=== PATIENT | female | born 1995 | race African-American/Black ===

== ENCOUNTER 2019-03-24 11:38 | Emergency (ER) | payer BC ==
[~2019-03-24] VITALS: Ht 160 cm; Wt 75.0 kg
[2019-03-24 14:22] LABS: BASOPHILS % 0.5 % (0.0-2.0); HEMATOCRIT. 37.9 % (36.0-48.0); HEMOGLOBIN. 12.9 g/dL (12.0-16.0); LYMPHOCYTES % 29.9 % (20.0-50.0); MEAN CORPUSCULAR HEMOGLOBIN 29.9 pg (28.0-32.0); MEAN CORPUSCULAR VOLUME 87.9 fL (81.0-99.0); MEAN PLATELET VOLUME 8.4 fl (7.4-10.4); MONOCYTES % 9.2 % (2.0-8.0); NEUTROPHILS % 57.4 % (40.0-76.0); PLATELET 278 x1000/uL (130-400); RED BLOOD CELL COUNT 4.31 mill/uL (4.2-5.4); RED CELL DISTRIBUTION WIDTH 13.1 % (11.6-14.6)
[2019-03-24 16:14] VITALS: BP 121/75
== END 2019-03-24 16:23 | disposition home or self-care (01) ==
LOC: ER 11:38
DX: O20.0 Threatened abortion (principal); O26.891 Other specified pregnancy related conditions, first trimester; F12.10 Cannabis abuse, uncomplicated; Z98.890 Other specified postprocedural states; Z3A.13 13 weeks gestation of pregnancy; W10.8XXA Fall (on) (from) other stairs and steps, initial encounter; Y93.01 Activity, walking, marching and hiking; Y92.89 Other specified places as the place of occurrence of the external cause; Y99.8 Other external cause status
CPT/HCPCS: 36415; 76801; 76817; 81025; 84702; 85025; 86850; 86900; 86901; 99284; Z7610

== ENCOUNTER 2019-05-19 01:48 | Emergency (ER) | payer BC ==
[~2019-05-19] VITALS: Ht 160 cm; Wt 78.9 kg
[2019-05-19] MEDS ORDERED: ONDANSETRON 4MG ODT PO ONE (03:15)
[2019-05-19] MEDS ORDERED: ACETAMINOPHEN 500MG TABLET PO ONE (03:15)
[2019-05-19] MEDS ORDERED: AZITHROMYCIN 500 MG TABLET PO ONE (03:15)
[2019-05-19] MEDS ORDERED: CIPROFLOXACIN 0.3% OPHTH SOLN 2.5ML RIGHTEYE ONE (03:15)
[2019-05-19 04:14] VITALS: BP 106/65
== END 2019-05-19 04:19 | disposition home or self-care (01) ==
LOC: ER 02:04
DX: O99.89 Other specified diseases and conditions complicating pregnancy, childbirth and the puerperium (principal); H60.91 Unspecified otitis externa, right ear; F12.10 Cannabis abuse, uncomplicated; Z98.890 Other specified postprocedural states; Z3A.20 20 weeks gestation of pregnancy
CPT/HCPCS: 99284; Q0162

== ENCOUNTER 2019-11-04 05:00 | Inpatient (IN) | payer BC ==
[~2019-11-04] VITALS: Ht 160 cm; Wt 72.6 kg
[2019-11-04] MEDS ORDERED: MORPHINE SULFATE 4 MG/ML CPJ (NOT FOR IM USE) IV STA (06:33)
[2019-11-04] MEDS ORDERED: ONDANSETRON HCL 4MG/2ML INJ IV STA (06:33)
[2019-11-04 06:44] LABS: BASOPHILS % 0.8 % (0.0-2.0); EOSINOPHILS % 6.9 % (0.0-5.0); HEMATOCRIT. 41.1 % (36.0-48.0); HEMOGLOBIN. 13.6 g/dL (12.0-16.0); LYMPHOCYTES % 59.5 % (20.0-50.0); MEAN CORPUSCULAR HEMOGLOBIN 26.2 pg (28.0-32.0); MEAN CORPUSCULAR VOLUME 79.5 fL (81.0-99.0); MEAN PLATELET VOLUME 8.7 fl (7.4-10.4); MONOCYTES % 9.2 % (2.0-8.0); NEUTROPHILS % 23.6 % (40.0-76.0); PLATELET 243 x1000/uL (130-400); RED BLOOD CELL COUNT 5.17 mill/uL (4.2-5.4); RED CELL DISTRIBUTION WIDTH 17.6 % (11.6-14.6)
[2019-11-04 06:47] LABS: CLARITY URINE CLEAR (CLEAR); COLOR URINE YELLOW (YELLOW); KETONES URINE NEGATIVE (NEGATIVE); LEUKOCYTE ESTERASE URINE NEGATIVE (NEGATIVE); NITRITE URINE NEGATIVE (NEGATIVE); OCCULT BLOOD URINE NEGATIVE (NEGATIVE); PROTEIN URINE NEGATIVE (NEGATIVE); SPECIFIC GRAVITY URINE 1.016 (1.005-1.030); UROBILINOGEN URINE 0.2 E.U./dL (0.2-1.0)
[2019-11-04 06:51] LABS: CHLORIDE 106 mEq/L (98-107)
[2019-11-04 07:05] LABS: INR 1.1; PROTHROMBIN TIME 11.2 sec (9.6-11.0)
[2019-11-04 08:00] VITALS: BP 140/96
[2019-11-04] MEDS ORDERED: MORPHINE SULFATE 4 MG/ML CPJ (NOT FOR IM USE) IV ONE (08:00)
[2019-11-04 10:45] VITALS: BP 140/96
[2019-11-04] MEDS ORDERED: ACETAMINOPHEN 325MG TABLET PO PRN (11:00)
[2019-11-04] MEDS ORDERED: MORPHINE SULFATE 2 MG/ML CPJ (NOT FOR IM USE) IV PRN ×2 (11:00)
[2019-11-04] MEDS ORDERED: ONDANSETRON HCL 4MG/2ML INJ IV PRN (11:00)
[2019-11-04] MEDS: DEXT 5%/0.9% NACL 1,000 ML IV SCH ×2 (11:00→20:51)
[2019-11-04 12:00] VITALS: BP 126/83
[2019-11-04] MEDS ORDERED: ACETAMINOPHEN 650MG/20.3ML UDC PO PRN (15:15)
[2019-11-04 16:00] VITALS: BP 138/80
[2019-11-04] MEDS ORDERED: FAMO-135 MT (17:26)
[2019-11-04] MEDS: MORPHINE SULFATE 2 MG/ML CPJ (NOT FOR IM USE) IV PRN ×2 (17:41→22:00)
[2019-11-04 20:00] VITALS: BP 121/91
[2019-11-05] VITALS: BP 102/63
[2019-11-05 04:00] VITALS: BP 114/65
[2019-11-05 07:32] LABS: BASOPHILS % 0.9 % (0.0-2.0); EOSINOPHILS % 7.5 % (0.0-5.0); HEMOGLOBIN. 13.3 g/dL (12.0-16.0); LYMPHOCYTES % 69.7 % (20.0-50.0); MEAN CORPUSCULAR VOLUME 80.4 fL (81.0-99.0); MEAN PLATELET VOLUME 8.9 fl (7.4-10.4); MONOCYTES % 7.6 % (2.0-8.0); NEUTROPHILS % 14.3 % (40.0-76.0); PLATELET 219 x1000/uL (130-400); RED CELL DISTRIBUTION WIDTH 17.7 % (11.6-14.6)
[2019-11-05 07:37] LABS: HCG SCREEN NEGATIVE
[2019-11-05 08:36] LABS: CHLORIDE 109 mEq/L (98-107)
[2019-11-05] MEDS ORDERED: BUPIVACAINE HCL/PF 0.5% (5MG/ML) 10ML ONE ×2 (09:12→09:13)
[2019-11-05] MEDS ORDERED: SKIN ADHESIVE 0.7 GM EA TOP ONE (09:12)
[2019-11-05] MEDS ORDERED: ROCURONIUM BROMIDE 10MG/ML VIAL 5ML IV ONE (09:38)
[2019-11-05] MEDS ORDERED: GLYCOPYRROLATE 0.2 MG/ML 2ML VIAL ONE ×2 (09:38→10:27)
[2019-11-05] MEDS ORDERED: NEOSTIGMINE METHYLSULFATE 1MG/ML 10 ML VIAL ONE (09:38)
[2019-11-05] MEDS ORDERED: MIDAZOLAM HCL 2 MG/2 ML VIAL ONE (09:38)
[2019-11-05] MEDS ORDERED: PROPOFOL 200MG/20ML VIAL IV ONE (09:38)
[2019-11-05] MEDS ORDERED: FENTANYL CITRATE/PF 50MCG/ML 2ML VIAL ONE (09:38)
[2019-11-05] MEDS ORDERED: HYDROCODONE/ACETAMINOPHEN 5/325MG TABLET PO PRN ×2 (10:00)
[2019-11-05] MEDS ORDERED: MORPHINE SULFATE 2 MG/ML CPJ (NOT FOR IM USE) IV PRN (10:00)
[2019-11-05] MEDS ORDERED: ACETAMINOPHEN 325MG TABLET PO PRN (10:00)
[2019-11-05] MEDS ORDERED: ONDANSETRON HCL 4MG/2ML INJ IV PRN ×2 (10:00→10:30)
[2019-11-05] MEDS ORDERED: CEFAZOLIN SODIUM 1000MG/VIAL ONE (10:02)
[2019-11-05] MEDS ORDERED: SODIUM CHLORIDE 0.9% 10ML VIAL ONE (10:02)
[2019-11-05] MEDS ORDERED: ONDANSETRON HCL 4MG/2ML INJ ONE (10:02)
[2019-11-05] MEDS ORDERED: DEXAMETHASONE 4MG/ML 1ML VIAL ONE (10:02)
[2019-11-05] MEDS ORDERED: LIDOCAINE HCL/PF 1% 10 MG/ML 5ML VIAL ONE (10:02)
[2019-11-05] MEDS ORDERED: MEPERIDINE HCL/PF 25MG/ML CPJ IV PRN (10:30)
[2019-11-05] MEDS ORDERED: HYDROMORPHONE HCL/PF 2MG/ML CPJ IV PRN (10:30)
[2019-11-05] MEDS ORDERED: LABETALOL 5MG/ML SYR 20 MG/4 ML SYRINGE IV PRN (10:30)
[2019-11-05] MEDS: SODIUM CHLORIDE 0.9% INJ 3ML FLUSH IVF SCH ×2 (14:20→20:56)
[2019-11-05] MEDS: DEXT 5%/0.45% NACL KCL 20MEQ/L 1,000 ML IV SCH ×2 (14:32→20:56)
[2019-11-05] MEDS: MORPHINE SULFATE 4 MG/ML CPJ (NOT FOR IM USE) IV PRN ×3 (15:24→21:51)
[2019-11-05 16:00] VITALS: BP 128/90
[2019-11-05 20:19] VITALS: BP 123/91
[2019-11-06] VITALS: BP 119/83
[2019-11-06] MEDS: MORPHINE SULFATE 4 MG/ML CPJ (NOT FOR IM USE) IV PRN (03:00)
[2019-11-06 04:00] VITALS: BP 126/85
[2019-11-06] MEDS: SODIUM CHLORIDE 0.9% INJ 3ML FLUSH IVF SCH (06:54)
[2019-11-06 08:00] VITALS: BP 144/97
[2019-11-06] MEDS ORDERED: TOPUD PO (11:28)
[2019-11-06 11:41] VITALS: BP 144/97
== END 2019-11-06 12:06 | disposition home or self-care (01) | DRG 769 ==
LOC: ER 05:34 → 6EST 08:39 → UNDOADMIN 08:39 → ENRESERV 09:27
PROVIDERS: ADMIT Family Medicine Adult Medicine; ATTEND Family Medicine Adult Medicine
PROC: 0FT44ZZ Resection of Gallbladder, Percutaneous Endoscopic Approach (ICD-10-PCS; principal; 2019-11-05)
DX: O99.63 Diseases of the digestive system complicating the puerperium (principal); K80.00 Calculus of gallbladder with acute cholecystitis without obstruction; R65.10 Systemic inflammatory response syndrome (SIRS) of non-infectious origin without acute organ dysfunction; O16.5 Unspecified maternal hypertension, complicating the puerperium; K83.8 Other specified diseases of biliary tract; Z98.891 History of uterine scar from previous surgery
CPT/HCPCS: 36415; 74181; 76700; 80053; 81003; 83735; 84703; 85025; 88304; 96365; 96368; 96375; 96376; 99285; J0690; J1100; J2175; J2250; J2270; J2405; J2704; J2710; J3010; J3490; J7042